=== PATIENT | female | born 1950 | race African-American/Black ===

== ENCOUNTER 2024-10-04 10:23 | Outpatient (AMB) | payer MEDICARE, SELFPAY ==
--- NOTE | 2024-10-04 11:20 | ORTHONT_ITS ---
Vital signs 10/04/24 11:21 Height 1.63 m Height Method Stated Weight 108.862 kg Weight Measurement Method Standing Scale BMI 40.9 BP 134/82 H Blood Pressure Source Automatic Cuff Blood Pressure Location Right Upper Arm Position Sitting Respiration 18 Pulse 85 Pulse Source Monitor Temp 97.8 F Temp Source Temporal Artery Scan Pulse Oximetry (%) 99 Oxygen Delivery Method Room Air Med/Allergies Allergies & Medications Allergies No Known Allergies Allergy (Verified 10/04/24 11:25) Medication Reconciliation meloxicam 7.5 mg tablet 7.5 mg PO QDAY #45 tabs 04/30/24 [Rx Confirmed 10/04/24] ibuprofen 800 mg tablet 800 mg PO BID 09/23/24 [History Confirmed 10/04/24] Subjective Visit Visit for: follow up visit Immunization / Flu Flu Vaccine in the Last 12 Months: No Flu Vaccine Exclusion Criteria: No Exclusion Criteria History of Present Illness Chief complaint: FOLLOWING BILATERAL KNEE INJECTION Patient is a pleasant 74-year-old female with bilateral knee pain worse on the right. This has been ongoing for 2 years. She tries ibuprofen. The pain is affecting her quality life and happiness. The knee injection has provided some relief bilaterally. Personal History Red flag PMH: smoker (NON SMOKER ) Pain Pain level (0-10): 4 Pain duration: ALL DAY Pain location: inside (medial), outside (lateral), anterior and posterior Pain quality: sharp, dull and aching Pain timing: increases with activity Associated signs & symptoms: weakness and stiffness Ambulatory data Ambulatory device: cane Treatments Improvement with previous injections: No Improvement with PT: No Improvement with NSAIDS: n/a Review of Systems Review of Systems: All systems negative unless otherwise noted in HPI. Exam Exam Patient is in no acute distress and is cooperative with the examination today. Breathing is nonlabored. In no respiratory distress. Bilateral extremities were evaluated and demonstrates sensation intact to light touch. Palpable pedal pulses are present. No significant edema is present. Bilateral hips were examined. The patient has no pain with log roll of the hips. Internal rotation to 30 degrees and external rotation to 30 degrees is painless. Negative FADIR. The left knee was examined. The left knee is in [varus] alignment. Range of motion from [0-115] degrees. Knee is stable to varus and valgus as well as AP translation with <5mm. Patient has a [negative] McMurrays. There is [no] pain with patellofemoral compression and [no] crepitus noted. The knee is [tender] to palpation [medially]. The right knee was also examined. The right knee is in [varus] alignment. Range of motion from [0-120] degrees. Knee is stable to varus and valgus as well as AP translation with <5mm. Patient has a [negative] McMurrays. There is [no] pain with patellofemoral compression and [no] crepitus noted. The knee is [tender] to palpation [medially]. Patient has weightbearing x-rays that demonstrate complete obliteration of the medial joint space. The patient has varus deformity. Assessment and Plan Problem List (1) Bilateral primary osteoarthritis of knee: Status: Acute Plan: Patient is a 74-year-old female with bilateral knee arthritis. We will get weightbearing films. She does have severe arthritis bilaterally. She is still doing well from her injection. She has lost over 10 pounds since we last saw her. She would like a hyaluronic acid injection on the left and wants to talk about surgery on the right. We discussed total knee replacement in great detail. She is significant arthritis on the right and the left knee arthritis is more mild. We discussed total knee replacement is reasonable option The nature and purpose of the total knee replacement, alternative method(s) of treatment, the material risks involved, and the possibility of complications were fully explained to the patient. The patient does NOT have any of the following contraindications to TKA: - Active infection of the knee joint, OR - Active systemic bacteremia, OR - Active skin infection or open wound at surgical site, OR - Neuropathic arthritis, OR - Severe, rapidly progressive neurological disease, OR - Severe medical condition that makes risks of surgery outweigh the potential benefit The patient was told the most common risks and complications associated with a total knee replacement include, but are not limited to: blood clots in the leg, fatal pulmonary embolism, dislocation of the prosthesis, intraoperative and postoperative fractures of the femur or tibia, infection, failure of the prosthesis or grafting materials, complications from anesthesia, reactions to blood transfusions, postoperative leg length inequality, instability of the knee replacement, nerve damage or injury, vascular injury, delayed wound healing, infection, other injury or even . In addition, there are risks associated with anesthesia given during this operation. Also, the patient was told that after undergoing a total knee replacement there may still be persistent pain or disability. The patient was informed that the success of this operation in part depends upon the mechanical devices which are going to be implanted and that these devices can fail or malfunction, and may need to be repaired or replaced and there are no guarantees as to the longevity of this device or its parts and that it or its parts could fail prematurely. The patient was also notified that during the course of surgery, there may be a need to use bone graft from donors, and that any bone graft used will be carefully screened for communicable diseases, including AIDS, hepatitis, Flynn-Creutzfeldt, or other diseases, but despite the screening procedures, there is a small chance that they could contract one of these diseases. Finally, the patient was asked to follow completely and fully with all advice and recommended treatments, and that recovery and ultimate outcome are affected by their compliance with recommended treatment. We discussed the risks, benefits and treatment alternatives, and the patient is interested in proceeding with surgery. We will try to set this up as expeditiously as possible. (2) Bilateral knee pain: Status: Acute Advanced Care Planning Discussion Advance care planning discussed with:: patient Office Procedures GNS Level of Care Nursing/Assessment Patient Status: Established Patient Nursing Assessment/Reassesment: Medication Reconciliation, Update PMH in EMR and Vital Signs Coordination of Care: Complex Care and Chronic Disease 1-5, Education Complex Pt/Fam, Consent,records obtained, informed consent, Results/Orders obtained and Staff clarify orders Established Patient Charge Established Patient Point Assignment: 95 Established Patient Point Charge: EP Level 3 (80-115) Surgical Proc/IM SQ injection Major Surgical Procedure: Yes (KNEE INJECTION) Medication Given Medication Given Medication Given: Yes Documented Dose Given: 6 Route: Infiitration Office Meds Hyalgan 10 mg/mL intra-articular syringe Performing Provider: Sabino Kirk MD Performing Location: [facility] Administered by: Sabino Kirk MD on 10/04/24 15:49 Dose Route Admin Location Dispensed Lot Number Expiration Date [employer] 20 mg intra-articular 2 mL [id number] Past Medical History Past Medical History Have you ever been diagnosed with any of the following: Neurological Problems Seizures: No Cardiology Problems Congestive Heart Failure: No Respiratory Problems Chronic Obstructive Pulmonary Disease (COPD): No Bronchitis: Yes Smoking: No Smoking Exposure: No Genital/Urinary Problems Renal Disease: No Musculoskeletal Problems Arthritis: Yes Head,Eye,Nose,Throat Problems Cataracts: Yes (BILATERAL) Endocrine Problems Diabetes Mellitus Type 1: No Diabetes Mellitus Type 2: No Blood Problems Anemia: Yes Other Problems Blood Transfusions: Yes Blood Transfusion Reaction: No Anesthesia Reactions: No Cancer: No
[2024-10-04 11:21] VITALS: BP 134/82; PULSE 85; RESP 18; TEMP 36.6; O2SAT 99; BMI 40.9
== END 2024-10-04 11:42 | disposition home or self-care (01) ==
LOC: HODSRG 10:23
PROVIDERS: Supervising Provider Orthopaedic Surgery Adult Reconstructive Orthopaedic Surgery; Visit Provider Orthopaedic Surgery Adult Reconstructive Orthopaedic Surgery
DX: M17.0 Bilateral primary osteoarthritis of knee (principal); M25.561 Pain in right knee; M25.562 Pain in left knee
CPT/HCPCS: 99213; G0463; J7325

== ENCOUNTER 2024-11-05 15:11 | Outpatient (AMB) | payer MEDICARE, SELFPAY ==
[2024-11-05 15:21] VITALS: BP 157/81; PULSE 77; RESP 18; TEMP 36.9; O2SAT 95; BMI 41.0
--- NOTE | 2024-11-05 15:21 | RHCORTHONT_ITS ---
Vital signs 11/05/24 15:21 Height 1.63 m Height Method Stated Weight 109.032 kg Weight Measurement Method Standing Scale BMI 41.0 BP 157/81 H Blood Pressure Source Automatic Cuff Blood Pressure Location Left Upper Arm Position Sitting Respiration 18 Pulse 77 Pulse Source Monitor Temp 98.4 F Temp Source Temporal Artery Scan Pulse Oximetry (%) 95 Oxygen Delivery Method Room Air Med/Allergies Allergies & Medications Allergies No Known Allergies Allergy (Verified 11/05/24 15:22) Medication Reconciliation meloxicam 7.5 mg tablet 7.5 mg PO QDAY #45 tabs 04/30/24 [Rx Confirmed 11/05/24] ibuprofen 800 mg tablet 800 mg PO BID #50 tabs 10/10/24 [Rx Confirmed 11/05/24] Exam Exam Patient is in no acute distress and is cooperative with the examination today. Breathing is nonlabored. In no respiratory distress. Bilateral extremities were evaluated and demonstrates sensation intact to light touch. Palpable pedal pulses are present. No significant edema is present. Bilateral hips were examined. The patient has no pain with log roll of the hips. Internal rotation to 30 degrees and external rotation to 30 degrees is painless. Negative FADIR. The left knee was examined. The left knee is in [varus] alignment. Range of motion from [0-115] degrees. Knee is stable to varus and valgus as well as AP translation with <5mm. Patient has a [negative] McMurrays. There is [no] pain with patellofemoral compression and [no] crepitus noted. The knee is [tender] to palpation [medially]. The right knee was also examined. The right knee is in [varus] alignment. Range of motion from [0-120] degrees. Knee is stable to varus and valgus as well as AP translation with <5mm. Patient has a [negative] McMurrays. There is [no] pain with patellofemoral compression and [no] crepitus noted. The knee is [tender] to palpation [medially]. Patient has weightbearing x-rays that demonstrate complete obliteration of the medial joint space. The patient has varus deformity. Assessment and Plan Problem List (1) Bilateral primary osteoarthritis of knee: Status: Acute Plan: Patient is a 74-year-old female with bilateral knee arthritis. We will get weightbearing films. She does have severe arthritis bilaterally. She is still doing well from her injection. She has lost over 10 pounds since we last saw her. She would like a hyaluronic acid injection on the left and wants to talk about surgery on the right. We discussed total knee replacement in great detail. We will plan for continued injections at this time as she is waiting for cardiac clearance Recommend knee cortisone injections as patient would like to proceed with conservative treatment at this time. The risks and benefits of the procedure were reviewed with the patient and patient gave verbal consent to continue with the procedure. Procedure: performed by Dr. Kirk Using sterile technique the Bilateral knees were thoroughly prepped with alcohol, and approximately 1 cc of Kenalog 40 mg/mL and 4 cc of 1% lidocaine was injected into each knee without resistance into the medial tibial femoral joint space. The patient tolerated the procedure.. (2) Bilateral knee pain: Status: Acute Advanced Care Planning Discussion Advance care planning discussed with:: patient Office Procedures GNS Level of Care Nursing/Assessment Patient Status: Established Patient Nursing Assessment/Reassesment: Medication Reconciliation, Update PMH in EMR and Vital Signs Coordination of Care: Complex Care and Chronic Disease 1-5, Education Complex Pt/Fam, Consent,records obtained, informed consent, Results/Orders obtained and Staff clarify orders Established Patient Charge Established Patient Point Assignment: 95 Established Patient Point Charge: EP Level 3 (80-115) Surgical Proc/IM SQ injection Major Surgical Procedure: Yes (BILATERAL KNEE INJECTION) Medication Given Medication Given Medication Given: Yes Documented Dose Given: 8 Route: Infiitration Medication Given Medication Given Medication Given: Yes Documented Dose Given: 2 Route: Infiitration Office Meds Xylocaine 10 mg/mL (1 %) injection solution Performing Provider: Sabino Kirk MD Performing Location: [facility] Administered by: Sabino Kirk MD on 11/05/24 15:46 Dose Route Admin Location Dispensed Lot Number Expiration Date [facility] Editor Book 40 mL Infiltration 40 mL [id number] 07/19/27 16344-115-70 FRESENI[employer] KA triamcinolone acetonide 40 mg/mL suspension for injection Performing Provider: Sabino Kirk MD Performing Location: [facility] Administered by: Sabino Kirk MD on 11/05/24 15:46 Dose Route Admin Location Dispensed Lot Number Expiration Date [facility] Editor Book 80 mg Infiltration 2 mL [id number] 04/18/26 5834-0584-13 TEVA PARENTERAL MA Intake Visit Data Collection New Patient or Established: Established Patient (seen at [facility] within 3 years) Seen by Clinical Staff ONLY (RN/MA): No Coatings Inspector Required: No PCP or OBGYN visit in last 3 months: Yes Hx Now: No Do You Feel Safe at Home: Yes Authorities Contacted: N/A Questionairres Past Medical History Past Medical History Have you ever been diagnosed with any of the following: Neurological Problems Seizures: No Cardiology Problems Congestive Heart Failure: No Respiratory Problems Chronic Obstructive Pulmonary Disease (COPD): No Bronchitis: Yes Smoking: No Smoking Exposure: No Genital/Urinary Problems Renal Disease: No Musculoskeletal Problems Arthritis: Yes Head,Eye,Nose,Throat Problems Cataracts: Yes (BILATERAL) Endocrine Problems Diabetes Mellitus Type 1: No Diabetes Mellitus Type 2: No Blood Problems Anemia: Yes Other Problems Blood Transfusions: Yes Blood Transfusion Reaction: No Anesthesia Reactions: No Cancer: No Subjective Visit Visit for: follow up visit Immunization / Flu Flu Vaccine in the Last 12 Months: No Flu Vaccine Exclusion Criteria: No Exclusion Criteria History of Present Illness Chief complaint: Bilateral knee pain Patient is a 74-year-old female with bilateral knee pain who is failed conservative treatment. We discussed nonoperative and operative options. At this point in time she is still waiting for her cardiac clearance. We will thus do a cortisone injection of both knees today Pain Pain level (0-10): 6 Pain duration: constant Pain location: inside (medial) Pain quality: aching Pain timing: increases with activity Associated signs & symptoms: none Ambulatory data Ambulatory device: walker Treatments Improvement with previous injections: No Improvement with PT: No Improvement with NSAIDS: no Review of Systems Review of Systems: All systems negative unless otherwise noted in HPI.
== END 2024-11-05 15:49 | disposition home or self-care (01) ==
LOC: HODSRG 15:11
PROVIDERS: PCP Family Medicine; Referring Provider Family Medicine; Supervising Provider Orthopaedic Surgery Adult Reconstructive Orthopaedic Surgery; Visit Provider Orthopaedic Surgery Adult Reconstructive Orthopaedic Surgery
DX: M17.0 Bilateral primary osteoarthritis of knee (principal); M25.562 Pain in left knee; M25.561 Pain in right knee
CPT/HCPCS: 20610; 99213; J3301; J3490; G0463

== ENCOUNTER 2025-01-28 14:00 | Outpatient (AMB) | payer MEDICARE, SELFPAY ==
--- NOTE | 2025-01-28 15:18 | ORTHONT_ITS ---
Med/Allergies Allergies & Medications Allergies No Known Allergies Allergy (Verified 11/05/24 15:22) Exam Exam Patient is in no acute distress and is cooperative with the examination today. Breathing is nonlabored. In no respiratory distress. Bilateral extremities were evaluated and demonstrates sensation intact to light touch. Palpable pedal pulses are present. No significant edema is present. Bilateral hips were examined. The patient has no pain with log roll of the hips. Internal rotation to 30 degrees and external rotation to 30 degrees is painless. Negative FADIR. The left knee was examined. The left knee is in [varus] alignment. Range of motion from [0-115] degrees. Knee is stable to varus and valgus as well as AP translation with <5mm. Patient has a [negative] McMurrays. There is [no] pain with patellofemoral compression and [no] crepitus noted. The knee is [tender] to palpation [medially]. The right knee was also examined. The right knee is in [varus] alignment. Range of motion from [0-120] degrees. Knee is stable to varus and valgus as well as AP translation with <5mm. Patient has a [negative] McMurrays. There is [no] pain with patellofemoral compression and [no] crepitus noted. The knee is [tender] to palpation [medially]. Patient has weightbearing x-rays that demonstrate complete obliteration of the medial joint space. The patient has varus deformity. Assessment and Plan Problem List (1) Bilateral primary osteoarthritis of knee: Status: Acute Plan: Patient is a 74-year-old female with bilateral knee arthritis. W she has severe arthritis on the right knee and would like to get this replaced. She would also like to get a left knee cortisone injection today Recommend knee cortisone injection as patient would like to proceed with conservative treatment at this time. The risks and benefits of the procedure were reviewed with the patient and patient gave verbal consent to continue with the procedure. Procedure: performed by Dr. Kirk Using sterile technique the left knee was thoroughly prepped with alcohol, and approximately 1 cc of Kenalog 40 mg/mL and 4 cc of 1% lidocaine was injected without resistance into the medial tibial femoral joint space. The patient tolerated the procedure. The nature and purpose of the right total knee replacement, alternative method(s) of treatment, the material risks involved, and the possibility of complications were fully explained to the patient. The patient does NOT have any of the following contraindications to TKA: - Active infection of the knee joint, OR - Active systemic bacteremia, OR - Active skin infection or open wound at surgical site, OR - Neuropathic arthritis, OR - Severe, rapidly progressive neurological disease, OR - Severe medical condition that makes risks of surgery outweigh the potential benefit The patient was told the most common risks and complications associated with a total knee replacement include, but are not limited to: blood clots in the leg, fatal pulmonary embolism, dislocation of the prosthesis, intraoperative and postoperative fractures of the femur or tibia, infection, failure of the prosthesis or grafting materials, complications from anesthesia, reactions to blood transfusions, postoperative leg length inequality, instability of the knee replacement, nerve damage or injury, vascular injury, delayed wound healing, infection, other injury or even . In addition, there are risks associated with anesthesia given during this operation. Also, the patient was told that after undergoing a total knee replacement there may still be persistent pain or disability. The patient was informed that the success of this operation in part depends upon the mechanical devices which are going to be implanted and that these devices can fail or malfunction, and may need to be repaired or replaced and there are no guarantees as to the longevity of this device or its parts and that it or its parts could fail prematurely. The patient was also notified that during the course of surgery, there may be a need to use bone graft from donors, and that any bone graft used will be carefully screened for communicable diseases, including AIDS, hepatitis, Flynn-Creutzfeldt, or other diseases, but despite the screening procedures, there is a small chance that they could contract one of these diseases. Finally, the patient was asked to follow completely and fully with all advice and recommended treatments, and that recovery and ultimate outcome are affected by their compliance with recommended treatment. We discussed the risks, benefits and treatment alternatives, and the patient is interested in proceeding with surgery. We will try to set this up as expeditiously as possible. (2) Bilateral knee pain: Status: Acute Advanced Care Planning Discussion Advance care planning discussed with:: patient MA Intake Visit Data Collection New Patient or Established: Established Patient (seen at [facility] within 3 years) Seen by Clinical Staff ONLY (RN/MA): No Aegis Console Operator Track Required: No PCP or OBGYN visit in last 3 months: Yes Hx Now: No Do You Feel Safe at Home: Yes Authorities Contacted: N/A Questionairres Past Medical History Past Medical History Have you ever been diagnosed with any of the following: Neurological Problems Seizures: No Cardiology Problems Congestive Heart Failure: No Respiratory Problems Chronic Obstructive Pulmonary Disease (COPD): No Bronchitis: Yes Smoking: No Smoking Exposure: No Genital/Urinary Problems Renal Disease: No Musculoskeletal Problems Arthritis: Yes Head,Eye,Nose,Throat Problems Cataracts: Yes (BILATERAL) Endocrine Problems Diabetes Mellitus Type 1: No Diabetes Mellitus Type 2: No Blood Problems Anemia: Yes Other Problems Blood Transfusions: Yes Blood Transfusion Reaction: No Anesthesia Reactions: No Cancer: No Subjective Visit Visit for: follow up visit Immunization / Flu Flu Vaccine in the Last 12 Months: No Flu Vaccine Exclusion Criteria: No Exclusion Criteria History of Present Illness Chief complaint: Bilateral knee pain Patient is a 74-year-old female with bilateral knee pain who is failed conservative treatment. We discussed nonoperative and operative options. She has received her cardiac clearance and wants to get surgery as soon as possible. We will plan to do it on the right as the left knee does not bother her that much. She would like a cortisone injection on the left today Pain Pain level (0-10): 6 Pain duration: constant Pain location: inside (medial) Pain quality: aching Pain timing: increases with activity Associated signs & symptoms: none Ambulatory data Ambulatory device: walker Treatments Improvement with previous injections: No Improvement with PT: No Improvement with NSAIDS: no Review of Systems Review of Systems: All systems negative unless otherwise noted in HPI.
[2025-01-28 15:24] VITALS: BP 158/87; PULSE 79; RESP 18; TEMP 36.7; O2SAT 98; BMI 41.1
== END 2025-01-28 15:55 | disposition home or self-care (01) ==
PROVIDERS: PCP Family Medicine; Referring Provider Family Medicine; Supervising Provider Orthopaedic Surgery Adult Reconstructive Orthopaedic Surgery; Visit Provider Orthopaedic Surgery Adult Reconstructive Orthopaedic Surgery
DX: M17.0 Bilateral primary osteoarthritis of knee (principal)
CPT/HCPCS: 20610; 99213; J3301; J3490; G0463

== ENCOUNTER → 2025-02-04 | Outpatient (CLI) | payer MEDICARE, SELFPAY ==
--- NOTE | 2025-02-04 | XR_ITS ---
Examination: CT right lower extremity, without contrast. 2-D sagittal reconstructions. 2-D coronal reconstructions. 3-D reconstructions. Date and time of exam:February 04, 2025 1230 hours INDICATIONS: Right knee pain unilateral osteoarthritis 5 years CTDI: vol (mGy):15.9 DLP: (mGycm):1169 Technique: Multiple 1.25 mm axial sections of the right lower extremity without intravenous contrast have been obtained. 2-D sagittal and coronal reconstructions have been obtained. 3-D reconstructions have been obtained. Low dose protocols were performed. One or more of the following dose reduction techniques were used; automated exposure control, adjustment of the mA and/or KV according to patient size, use of iterative reconstruction technique. Findings: Moderate osteopenia Moderate narrowing right hip joint No right hip fracture or dislocation Severe narrowing medial joint space Severe narrowing lateral patellofemoral joint Significant osteoarthritis lateral joint space No fracture IMPRESSION: Severe narrowing medial joint space right knee Severe narrowing lateral patellofemoral joint right knee
== END | disposition home or self-care (01) ==
LOC: CCTX 11:31
PROVIDERS: PCP Family Medicine; Referring Provider Orthopaedic Surgery Adult Reconstructive Orthopaedic Surgery; Visit Provider Orthopaedic Surgery Adult Reconstructive Orthopaedic Surgery
DX: M25.861 Other specified joint disorders, right knee (principal)
CPT/HCPCS: 73700

== ENCOUNTER 2025-02-12 07:00 | Day surgery (SDC) | payer MEDICARE, SELFPAY ==
[2025-02-04 14:07] VITALS: BMI 41.0
[2025-02-04 15:31] LABS: Basophils # (Auto) 0.1 Thou/mm3 (0.0-0.2); Basophils % (Auto) 1 % (0-2.5); Eosinophils # (Auto) 0.2 Thou/mm3 (0.0-0.5); Eosinophils % (Auto) 2 % (0-10); Hematocrit 31.1 % (36.0-46.0); Hemoglobin 9.4 g/dL (12.0-16.0); Immature Granulocytes % (Auto) 0 % (0-0); Immature Granulocytes Auto 0.01 Thou/mm3 (0.00-0.00); Lymphocytes # (Auto) 1.9 Thou/mm3 (1.0-4.8); Lymphocytes % (Auto) 27 % (10-50); Mean Corpuscular HGB Conc 30.2 g/dl (31.0-37.0); Mean Corpuscular Hemoglobin 24.9 pg (25.0-35.0); Mean Corpuscular Volume 83 fL (80-100); Monocytes # (Auto) 0.7 Thou/mm3 (0.0-0.8); Monocytes % (Auto) 10 % (0-12); Neutrophils # (Auto) 4.3 Thou/mm3 (1.8-7.7); Neutrophils % (Auto) 60 % (37-80); Nucleated Red Blood Cell % 0 /100 WBC (0); Platelet Count 345 Thou/mm3 (140-440); RDW Standard Deviation 56.8 fL (36.4-46.3); Red Blood Count 3.77 Miln/mm3 (4.00-5.20); White Blood Count 7.1 Thou/mm3 (3.6-11.0)
[2025-02-04 15:46] LABS: Alanine Aminotransferase 11 U/L (10-49); Albumin, Serum 4.1 gm/dL (3.4-4.8); Albumin/Globulin Ratio 1.6 (1.2-2.2); Alkaline Phosphatase 112 U/L (46-116); Anion Gap 7 (7-16); Aspartate Amino Transferase < 10 U/L (0-34); BUN/Creatinine Ratio 19 Ratio (12-20); Bilirubin,Total 0.5 mg/dL (0.3-1.2); Blood Urea Nitrogen 17 mg/dL (9-23); Calcium 9.8 mg/dL (8.3-10.6); Calcium (Corrected) 9.8 mg/dL (8.5-10.1); Carbon Dioxide 27.7 mMol/L (20.0-31.0); Chloride 106 mMol/L (98-107); Creatinine (Component) 0.9 mg/dL (0.6-1.3); Globulin 2.5 gm/dL (2.3-3.5); Glucose 95 mg/dL (74-106); Osmolality,Calculated 282 (275-295); Sodium 141 mMol/L (136-145); Total Protein 6.6 gm/dL (5.7-8.2); eGFR > 60 See Note
[2025-02-04 15:51] LABS: Partial Thromboplastin Time 27.6 Seconds (22.0-36.0)
--- NOTE | 2025-02-11 14:36 | SUR.PREOP ---
Pt notified to come in at 0700 for surgery tomorrow.
[2025-02-12] VITALS (21 sets, daily range): BP systolic 130–169; BP diastolic 71–99; PULSE 48–92; RESP 10–99; TEMP 36.3–37.4; O2SAT 98–100; BMI 46.5; BMI 50.1
--- NOTE | 2025-02-12 07:35 | CHAP ---
Visited briefly with patient giving words of encouragement and prayer.
[2025-02-12] MEDS: RINGERS LACTATED 1000 ML 1,000 ML 20 ML IV (07:53)
[2025-02-12] MEDS: MELOXICAM 7.5 MG TABLET PO (07:53)
[2025-02-12] MEDS: ACETAMINOPHEN 325 MG TABLET 650 MG PO (07:53)
[2025-02-12] MEDS: PREGABALIN 75 MG CAPSULE PO (07:53)
--- NOTE | 2025-02-12 12:42 | PD.SUROPNT ---
Date of Procedure 02/12/25 Pre Op Diagnosis right knee osteoarthritis Post Op Diagnosis right knee osteoarthritis Procedure right total knee replacement Findings full thickness cartilage loss and osteophytes Procedure Description Indication: The patient is a 75 year old who has a long history of right knee pain. X-rays show degenerative arthritis involving the knee. Over the past several years the patient has had increasing pain, progressive limitation in function. He has failed conservative measures including activity modification, physical therapy, injections, anti-inflammatories, and assistive devices. After a lengthy discussion of the risks and benefits, the patient presents now for total knee replacement. The nature and purpose of the total knee replacement, alternative method(s) of treatment, the material risks involved, and the possibility of complications were fully explained to the patient. The patient was told the most common risks and complications associated with a total knee replacement include, but are not limited to blood clots in the leg, fatal pulmonary embolism, dislocation of the prosthesis, intraoperative and postoperative fractures of the femur or tibia, infection, failure of the prosthesis or grafting materials, complications from anesthesia, reactions to blood transfusions, postoperative leg length inequality, instability of the knee replacement, nerve damage or injury, vascular injury, delayed wound healing, infections, other injury or even . In addition, there are risks associated with anesthesia given during this operation, temporary or permanent numbness on the skin lateral to the incision can be a complication unique to total knee surgery, and kneeling can be painful after knee replacement surgery. Also, the patient was told that after undergoing a total knee replacement there may still be pain or disability. We discussed with the patient that we will be using a robot-assisted technology. We discussed that there is a possibility of converting to manual instrumentation. The patient was informed that the success of this operation in part depends upon the mechanical devices which are going to be implanted and that these devices can fail or malfunction, and may need to be repaired or replaced and there are no guarantees as to the longevity of this device or its part and that it or its parts could fail prematurely. Finally, the patient was asked to follow completely and fully with all advice and recommended treatments, and that recovery and ultimate outcome are affected by their compliance with recommended treatment. Surgical technique: Patient was marked and consented in the pre-operative area. The patient was brought to the operating room and placed on the operating table in a supine position. Prior to positioning, a timeout procedure was performed between the surgeon, the anesthesiologist, and the nursing staff where the patient and the operative side were identified and confirmed. After adequate general anesthetic was obtained, the right lower extremity was prepped and draped in the usual sterile fashion. A weight based dose of Cefazolin were administered within 1 hour prior to incision. The robot was preregistered and calirated before the incision. The extremity was exsanguinated with an esmarch badge and tourniquet inflated to 250mmHg. A midline incision was made. A median parapatellar arthrotomy was made. The patella was subluxed laterally. A medial release was performed to expose the medial tibia. His femoral and tibial pins were placed through an intra incisional manner for both cases. Every effort was made to ensure that the distalmost aspect of the pin was hung in the second cortex. The arrays were then tightened several times to ensure that it was fixed for the remainder of the case. Both femoral and tibial checkpoints were then placed. We then went through the registration process of the bone. We then assessed the knee deformity and attempted to correct it. We also used the robot to aid in judging laxity in both extension and flexion. Final based on laxity and alignment we changed the preoperative assessment to obtain proper proper implant positioning and to correct deformity. Attention was then placed to the tibia. We made a tibial cut using the robot ensuring that both the MCL and the patella tendon were protected with retractors. We then went to the femur and made the posterior cut followed by the anterior cut and the anterior chamfer. The bone was then removed and we made a distal femur cut and a posterior chamfer cut. We verified all cuts. A trial reduction was performed with a size 3 femoral component and a size 3 keeled tibial component. The patella tracked centrally, and no lateral retinacular release was necessary. The trial implants were removed. The arrays, pins, and checkpoints were all removed. We performed a verification that all pins were removed. The cut bone surfaces were lavaged. A size 3 right femoral component, a size 3 keeled tibial component were impacted into position. The knee was felt to be well balanced in the sagittal and coronal plane. The final 3x10 mm cruciate-substituting articular insert was impacted into the tibial tray. The knee was brought out to full extension, flexed up to 120 degrees. It was stable to varus and valgus stress and appropriately balanced in flexion and extension. The wounds were copiously irrigated following deflation of tourniquet. The medial retinaculum was reapproximated with #1 vicryl and quill. The subcutaneous tissues were closed with 0 and 2-0 interrupted Vicryl. The skin was closed with 3-0 Monofilament V loc suture. A sterile dressing was applied. The patient was transferred to a bed and brought to recovery in stable condition. The patient tolerated the procedure well. There were no intraoperative complications. Sponge and needle counts were correct times 2. As the attending surgeon, I attest I was present and performed the entire operation. Grafts/Implants Size 2 CR Femur Size 2 Tibia 10mm poly CS Anesthesia none and GETA Implants rolly Pathology / specimen None Pathology comment: none Estimated Blood Loss 150 Condition Stable Disposition same day Surgeon Sabino Kirk MD Surgical Staff Operation Date: 02/12/25 10:30 Case Staff Anesthesiologist: Rigo Prasad RNoccupational health nursing director: Madeline Saul
--- NOTE | 2025-02-12 12:45 | XR_ITS ---
Examination: Right knee 2 views Technique one AP lateral right knee 2 views Exam date and time: February 12, 2025 at 1346 hours INDICATIONS: Postop knee replacement FINDINGS: Total right hip arthroplasty. Satisfactory alignment Moderate osteopenia No fracture IMPRESSION: Total right knee arthroplasty with satisfactory alignment
--- NOTE | 2025-02-12 12:48 | ESOP_ITS ---
Date of Procedure 02/12/25 Pre Op Diagnosis right knee osteoarthritis Post Op Diagnosis right knee osteoarthritis Procedure right total knee replacement Findings full thickness cartilage loss and osteophytes Procedure Description Indication: The patient is a 75 year old who has a long history of right knee pain. X-rays show degenerative arthritis involving the knee. Over the past several years the patient has had increasing pain, progressive limitation in function. He has failed conservative measures including activity modification, physical therapy, injections, anti-inflammatories, and assistive devices. After a lengthy discussion of the risks and benefits, the patient presents now for total knee replacement. The nature and purpose of the total knee replacement, alternative method(s) of treatment, the material risks involved, and the possibility of complications were fully explained to the patient. The patient was told the most common risks and complications associated with a total knee replacement include, but are not limited to blood clots in the leg, fatal pulmonary embolism, dislocation of the prosthesis, intraoperative and postoperative fractures of the femur or tibia, infection, failure of the prosthesis or grafting materials, complications from anesthesia, reactions to blood transfusions, postoperative leg length inequality, instability of the knee replacement, nerve damage or injury, vascular injury, delayed wound healing, infections, other injury or even . In addition, there are risks associated with anesthesia given during this operation, temporary or permanent numbness on the skin lateral to the incision can be a complication unique to total knee surgery, and kneeling can be painful after knee replacement surgery. Also, the patient was told that after undergoing a total knee replacement there may still be pain or disability. We discussed with the patient that we will be using a robot-assisted technology. We discussed that there is a possibility of converting to manual instrumentation. The patient was informed that the success of this operation in part depends upon the mechanical devices which are going to be implanted and that these devices can fail or malfunction, and may need to be repaired or replaced and there are no guarantees as to the longevity of this device or its part and that it or its parts could fail prematurely. Finally, the patient was asked to follow completely and fully with all advice and recommended treatments, and that recovery and ultimate outcome are affected by their compliance with recommended treatment. Surgical technique: Patient was marked and consented in the pre-operative area. The patient was brought to the operating room and placed on the operating table in a supine position. Prior to positioning, a timeout procedure was performed between the surgeon, the anesthesiologist, and the nursing staff where the patient and the operative side were identified and confirmed. After adequate general anesthetic was obtained, the right lower extremity was prepped and draped in the usual sterile fashion. A weight based dose of Cefazolin were administered within 1 hour prior to incision. The robot was preregistered and calirated before the incision. The extremity was exsanguinated with an esmarch badge and tourniquet inflated to 250mmHg. A midline incision was made. A median parapatellar arthrotomy was made. The patella was subluxed laterally. A medial release was performed to expose the medial tibia. His femoral and tibial pins were placed through an intra incisional manner for both cases. Every effort was made to ensure that the distalmost aspect of the pin was hung in the second cortex. The arrays were then tightened several times to ensure that it was fixed for the remainder of the case. Both femoral and tibial checkpoints were then placed. We then went through the registration process of the bone. We then assessed the knee deformity and attempted to correct it. We also used the robot to aid in judging laxity in both extension and flexion. Final based on laxity and alignment we changed the preoperative assessment to obtain proper proper implant positioning and to correct deformity. Attention was then placed to the tibia. We made a tibial cut using the robot ensuring that both the MCL and the patella tendon were protected with retractors. We then went to the femur and made the posterior cut followed by the anterior cut and the anterior chamfer. The bone was then removed and we made a distal femur cut and a posterior chamfer cut. We verified all cuts. A trial reduction was performed with a size 3 femoral component and a size 3 keeled tibial component. The patella tracked centrally, and no lateral retinacular release was necessary. The trial implants were removed. The arrays, pins, and checkpoints were all removed. We performed a verification that all pins were removed. The cut bone surfaces were lavaged. A size 3 right femoral component, a size 3 keeled tibial component were impacted into position. The knee was felt to be well balanced in the sagittal and coronal plane. The final 3x10 mm cruciate- substituting articular insert was impacted into the tibial tray. The knee was brought out to full extension, flexed up to 120 degrees. It was stable to varus and valgus stress and appropriately balanced in flexion and extension. The wounds were copiously irrigated following deflation of tourniquet. The medial retinaculum was reapproximated with #1 vicryl and quill. The subcutaneous tissues were closed with 0 and 2-0 interrupted Vicryl. The skin was closed with 3-0 Monofilament V loc suture. A sterile dressing was applied. The patient was transferred to a bed and brought to recovery in stable condition. The patient tolerated the procedure well. There were no intraoperative complications. Sponge and needle counts were correct times 2. As the attending surgeon, Olivier alcazar I was present and performed the entire operation. Grafts/Implants Size 3 CR Femur Size 3 Tibia 10mm poly CS Anesthesia spinal Implants [employer] Pathology / specimen None Pathology comment: none Estimated Blood Loss 150 Condition Stable Disposition same day Surgeon Sabino Kirk MD Surgical Staff Operation Date: 02/12/25 10:30 Case Staff Anesthesiologist: Rigo Prasad RNcareer technical supervisor: Madeline Saul
--- NOTE | 2025-02-12 13:25 | SUR.PHASEI ---
1325 Patient arrived to recovery resting comfortably in [facility], on oxygen 8L via oxy mask with a nasal airway-removed upon arrival, patient drowsy, able to follow verbal commands and respond, breathing unlabored, vital signs stable, dressing intact to right knee; prineo, abd, webril, katharina wraps, no bleeding noted, bilateral dorsalis pedis pulses present when palpated, patient has good circulation to right lower extremity; skin color normal for patient and warm to touch, lung sounds clear upon auscultation, report received from Gabriel MARTINEZ and Dr. Prasad
--- NOTE | 2025-02-12 13:58 | SUR.PHASEI ---
1358 XRAY complete per MD order
--- NOTE | 2025-02-12 14:28 | SUR.PHASEII ---
patients family at bedside with patient
--- NOTE | 2025-02-12 14:56 | SUR.PHASEII ---
6047 Dr. Kirk notified via telephone due to patient sleeping and unable to stay awake to keep conversation, patient states, I didn't sleep well last night , and patients daughter requested their mother to stay overnight in the hospital as they also shared their mother hasn't slept well the last two nights, Dr. Kirk gave telephone order read-back for [facility] overnight stay, regular diet, Oxycodone 5mg oral for pain 4-6 pain scale, Oxycodone 10mg oral for 7-10 pain scale, Tylenol oral 1000mg every Q6HR first dose at 1800 today, Aspirin 81mg oral BID first dose at 2100 today, will place order in EMR
--- NOTE | 2025-02-12 15:15 | SUR.PHASEII ---
1515 Patient resting comfortably in [facility] and oxygen level decreasing 88%-90%, on oxygen therapy initiated oxy mask 4L, will monitor patient
--- NOTE | 2025-02-12 17:02 | SUR.PHASEII ---
1702 Report given to Anisa MARTINEZ, patient meets discharge criteria from recovery, drowsy however talking with staff and eating ice chips, on oxygen 3L via nasal cannula, breathing unlabored, vital signs stable, denies pain, dressing intact to right knee; no bleeding noted.
--- NOTE | 2025-02-12 17:05 | SUR.PHASEII ---
1705 Notified patients daughter's via telephone, updated on patient condition and patients room assignment, all questions answered.
--- NOTE | 2025-02-12 17:40 | PC.PT ---
Attempt to initiate PT evaluation at 1500. Patient is still lethargic. Family at bedside. Check patient again at 1730. Patient is still lethargic. Unable to see the patient today for PT evaluation. Dr. Kirk made aware.
--- NOTE | 2025-02-12 17:47 | SUR.PHASEII ---
1747 Patient transported via bed with trapeze to room 373 without incident, patient awake and talking with staff, on oxygen 3L via oxy mask, breathing unlabored, vital signs stable, denies pain, dressing intact; no bleeding noted, Purewick in place-50ml urine voided. Anisa MARTINEZ promptly arrived in patient room, patient has call light in reach and talking with Anisa MARTINEZ when this sheet writer left patients room.
[2025-02-12] MEDS: ACETAMINOPHEN 500 MG TABLET 1000 MG PO ×2 (18:38→23:24)
[2025-02-12] MEDS: ASPIRIN EC 81 MG TABEC PO (21:06)
[2025-02-12] MEDS: oxyCODONE HCL 5 MG IR TAB 10 MG PO (21:34)
[2025-02-13] VITALS: BP 117/67; PULSE 78; PULSE 87; RESP 18; TEMP 36.3; O2SAT 99
[2025-02-13 04:00] VITALS: BP 119/70; PULSE 61; RESP 18; TEMP 36.2; O2SAT 98
[2025-02-13] MEDS: oxyCODONE HCL 5 MG IR TAB 10 MG PO ×2 (04:12→10:25)
[2025-02-13 08:00] VITALS: BP 117/63; PULSE 65; RESP 18; TEMP 36.3; O2SAT 100
[2025-02-13 08:03] VITALS: PULSE 93; RESP 100; RESP 18
[2025-02-13] MEDS: ASPIRIN EC 81 MG TABEC PO (08:23)
--- NOTE | 2025-02-13 11:17 | PC.SS ---
Addendum entered by MATTHIAS Angel 02/13/25 11:26: DME formed sent to Dr. Kirk's office for signatures. Original Note: Patient will need commode for home use. Bedside Commode Patient is physically incapable of utilizing regular toilet facilities because his or her diagnosis confines the patient to a single room. Patient is confined to a single level, and there is no toilet on that level; patient cannot access the toilet facilities in a timely manner due to lack of ambulation.
[2025-02-13 12:00] VITALS: BP 121/64; PULSE 68; RESP 18; TEMP 36.3; O2SAT 98
--- NOTE | 2025-02-13 12:30 | PC.SS ---
SS follow up: plan is for patient to d/c home. Family at bed side to transport. DME referral sent via [employer]. Patient explained DME vendor to contact patient or family for delivery of DME.
[2025-02-13] MEDS: ACETAMINOPHEN 500 MG TABLET 1000 MG PO (12:56)
--- NOTE | 2025-02-13 13:10 | PD.ANESPROG ---
Documentation for date of: 02/13/25 POST ANESTHESIA NOTE: Patient had GETA and R adductor canal block for R TKA yesterday. I just saw her briefly in 373 around 12:30 and she was alert and seated up by bedside, RN and family in room, NAD, denied any problems from anesthesia and jokingly asked if she can get anesthesia again. Rigo Prasad MD Anesthesia Progress Note Progress Note Most recent Vital Signs: Last Vital Signs Temp 97.3 F 02/13/25 12:00 Pulse 68 02/13/25 12:00 Resp 18 02/13/25 12:00 BP 121/64 02/13/25 12:00 Pulse Ox 98 02/13/25 12:00 O2 Del Method Room Air 02/13/25 12:00 O2 Flow Rate 3 02/12/25 22:57
== END 2025-02-13 13:32 | disposition home or self-care (01) ==
LOC: S2EX 12:45 → S3SX 02-13 07:22
PROVIDERS: Anesthesiology; PCP Family Medicine; Referring Provider Orthopaedic Surgery Adult Reconstructive Orthopaedic Surgery; Visit Provider Orthopaedic Surgery Adult Reconstructive Orthopaedic Surgery
PROC: (CPT 27447; principal; 2025-02-12 10:30)
DX: M17.11 Unilateral primary osteoarthritis, right knee (principal); M25.761 Osteophyte, right knee
CPT/HCPCS: 27447; 20985; 36415; 73560; 80053; 85025; 85610; 85730; 87081; 97163; A4217; C1713; C1776; J0690; J1100; J2250; J2405; J2704; J2710; J2795; J3010; J3490; J7030; J7120; J7999; A4648; A4649; A9270; J1596; J1805

== ENCOUNTER 2025-02-27 11:09 | Outpatient (AMB) | payer MEDICARE, SELFPAY ==
[2025-02-27 11:31] VITALS: BP 130/79; PULSE 82; RESP 18; TEMP 36.8; O2SAT 97
--- NOTE | 2025-02-27 11:31 | PD.ORTHCLVIS ---
Vital signs 02/27/25 11:31 Weight 107.303 kg Weight Measurement Method Standing Scale BP 130/79 Blood Pressure Source Automatic Cuff Blood Pressure Location Right Upper Arm Position Sitting Respiration 18 Pulse 82 Pulse Source Monitor Temp 98.3 F Temp Source Temporal Artery Scan Pulse Oximetry (%) 97 Oxygen Delivery Method Room Air Med/Allergies Allergies & Medications Allergies No Known Allergies Allergy (Verified 02/27/25 11:33) Medication Reconciliation ibuprofen 800 mg tablet 800 mg PO BID #50 tabs 01/17/25 [Rx Confirmed 02/27/25] ferrous sulfate 325 mg (65 mg iron) tablet (FeroSul) 325 mg PO .3 week 02/04/25 [History Confirmed 02/27/25] acetaminophen 500 mg tablet (Acetaminophen Extra Strength) 1,000 mg (2 x 500 mg) PO Q6H PRN pain #90 tabs 02/12/25 [Rx Confirmed 02/27/25] aspirin 81 mg tablet,delayed release 81 mg PO BID #60 tabs 02/12/25 [Rx Confirmed 02/27/25] doxycycline hyclate 100 mg tablet 100 mg PO BID #14 tabs 02/12/25 [Rx Confirmed 02/27/25] famotidine 10 mg tablet mg 02/12/25 [History Confirmed 02/27/25] gabapentin 300 mg capsule 300 mg PO .qhs #30 caps 02/12/25 [Rx Confirmed 02/27/25] sennosides 8.6 mg-docusate sodium 50 mg tablet (Senna-S) 1 tab-cap PO QDAY #30 tabs 02/12/25 [Rx Confirmed 02/27/25] oxycodone 5 mg tablet 5 mg PO Q6H PRN pain #28 tabs 02/13/25 [Rx Confirmed 02/27/25] oxycodone 5 mg tablet 5 mg PO Q6H PRN pain #28 tabs 02/13/25 [Rx Confirmed 02/27/25] Exam Exam Patient is in no acute distress and is cooperative with the examination today. Breathing is nonlabored. In no respiratory distress. Bilateral extremities were evaluated and demonstrates sensation intact to light touch. Palpable pedal pulses are present. No significant edema is present. Bilateral hips were examined. The patient has no pain with log roll of the hips. Internal rotation to 30 degrees and external rotation to 30 degrees is painless. Negative FADIR. Right knee incisions clean dry intact. Range of motion 0 to 105 degrees Assessment and Plan Problem List (1) History of total right knee replacement: Status: Acute Plan: Patient is status post right total knee replacement. Her pain is well-controlled. Will see her in 4 weeks with new x-rays Advanced Care Planning Discussion Advance care planning discussed with:: patient Office Procedures GNS Level of Care Nursing/Assessment Patient Status: Established Patient Nursing Assessment/Reassesment: Medication Reconciliation, Update PMH in EMR and Vital Signs Coordination of Care: Complex Care and Chronic Disease 1-5, Consent,records obtained, informed consent, Education Simp Pt/Fam, Results/Orders obtained and Staff clarify orders Established Patient Charge Established Patient Point Assignment: 90 Established Patient Point Charge: EP Level 3 (80-115) MA Intake Visit Data Collection New Patient or Established: Established Patient (seen at [facility] within 3 years) Reason for Visit:: 2 WK POST OP RT TKA Seen by Clinical Staff ONLY (RN/MA): No Oncology Consultant Required: No PCP or OBGYN visit in last 3 months: Yes Hx Now: No Do You Feel Safe at Home: Yes Authorities Contacted: N/A Questionairres Past Medical History Past Medical History Have you ever been diagnosed with any of the following: Neurological Problems Seizures: No Cardiology Problems Hypercholesterolemia: Yes Congestive Heart Failure: No Respiratory Problems Chronic Obstructive Pulmonary Disease (COPD): No Bronchitis: Yes Smoking: No Smoking Cessation Counseling: No Smoking Exposure: No Tobacco Use: No Stomache/Intestinal Problems Hepatitis: No Obesity: Yes Genital/Urinary Problems Renal Disease: No Reproductive Problems Previous Pregnancies: Yes Musculoskeletal Problems Arthritis: Yes Head,Eye,Nose,Throat Problems Cataracts: Yes (BILATERAL) Endocrine Problems Diabetes Mellitus Type 1: No Diabetes Mellitus Type 2: No Blood Problems Anemia: Yes Other Problems Hospitalization: No Shingles: No Blood Transfusions: Yes Blood Transfusion Reaction: No Anesthesia Reactions: No Chicken Pox: Yes Measles: Yes Mumps: Yes Cancer: No Subjective Visit Visit for: follow up visit and post op #1 (2 WK POST OP RT TKA ) Immunization / Flu Flu Vaccine in the Last 12 Months: No Flu Vaccine Exclusion Criteria: Refused by Patient History of Present Illness Chief complaint: Total knee replacement Mario is 2 weeks status post total knee replacement. She is doing well. She is doing well with home physical therapy Pain Pain level (0-10): 6 Pain duration: 2 WEEKS Pain location: anterior Pain quality: sharp and aching Pain timing: increases with activity Associated signs & symptoms: numbness, stiffness and other (specify) (SWELLING RT FOOT ) Ambulatory data Ambulatory device: walker Walking distance (minutes): 5 Treatments Number of previous injections: 0 Number of Physical Therapy sessions: 0 Improvement with NSAIDS: n/a Review of Systems Review of Systems: All systems negative unless otherwise noted in HPI.
== END 2025-02-27 11:55 | disposition home or self-care (01) ==
LOC: HODSRG 11:09
PROVIDERS: PCP Family Medicine; Referring Provider Family Medicine; Supervising Provider Orthopaedic Surgery Adult Reconstructive Orthopaedic Surgery; Visit Provider Orthopaedic Surgery Adult Reconstructive Orthopaedic Surgery
DX: Z96.651 Presence of right artificial knee joint (principal); E78.00 Pure hypercholesterolemia, unspecified
CPT/HCPCS: 99213; G0463

== ENCOUNTER 2025-04-08 13:01 | Outpatient (AMB) | payer MEDICARE, SELFPAY ==
--- NOTE | 2025-04-08 13:16 | ORTHONT_ITS ---
Vital signs 04/08/25 13:17 Height 1.6 m Height Method Stated Weight 106.282 kg Weight Measurement Method Standing Scale BMI 41.5 BP 139/80 H Blood Pressure Source Automatic Cuff Blood Pressure Location Left Upper Arm Position Sitting Respiration 19 Pulse 81 Pulse Source Monitor Temp 97.9 F Temp Source Temporal Artery Scan Pulse Oximetry (%) 97 Oxygen Delivery Method Room Air Med/Allergies Allergies & Medications Allergies No Known Allergies Allergy (Verified 04/08/25 13:18) Medication Reconciliation ibuprofen 800 mg tablet 800 mg PO BID #50 tabs 01/17/25 [Rx Confirmed 04/08/25] ferrous sulfate 325 mg (65 mg iron) tablet (FeroSul) 325 mg PO .3 week 02/04/25 [History Confirmed 04/08/25] aspirin 81 mg tablet,delayed release 81 mg PO BID #60 tabs 02/12/25 [Rx Confirmed 04/08/25] doxycycline hyclate 100 mg tablet 100 mg PO BID #14 tabs 02/12/25 [Rx Confirmed 04/08/25] famotidine 10 mg tablet mg 02/12/25 [History Confirmed 04/08/25] sennosides 8.6 mg-docusate sodium 50 mg tablet (Senna-S) 1 tab-cap PO QDAY #30 tabs 02/12/25 [Rx Confirmed 04/08/25] oxycodone 5 mg tablet 5 mg PO Q6H PRN pain #28 tabs 02/13/25 [Rx Confirmed 04/08/25] oxycodone 5 mg tablet 5 mg PO Q6H PRN pain #28 tabs 02/13/25 [Rx Confirmed 04/08/25] acetaminophen 500 mg tablet (Acetaminophen Extra Strength) 1,000 mg (2 x 500 mg) PO Q6H PRN pain #90 tabs 03/04/25 [Rx Confirmed 04/08/25] cyclobenzaprine 5 mg tablet 5 mg PO TID PRN muscle spasm #60 tabs 03/13/25 [Rx Confirmed 04/08/25] gabapentin 300 mg capsule 300 mg PO .qhs #30 caps 04/08/25 [Rx] oxycodone 5 mg tablet 5 mg PO Q6H PRN pain #28 tabs 04/08/25 [Rx] Exam Exam Patient is in no acute distress and is cooperative with the examination today. Breathing is nonlabored. In no respiratory distress. Bilateral extremities were evaluated and demonstrates sensation intact to light touch. Palpable pedal pulses are present. No significant edema is present. Bilateral hips were examined. The patient has no pain with log roll of the hips. Internal rotation to 30 degrees and external rotation to 30 degrees is painless. Negative FADIR. Right knee incisions clean dry intact. Range of motion 0 to 105 degrees Assessment and Plan Problem List (1) History of total right knee replacement: Status: Acute Plan: Patient is status post right total knee replacement. Her pain is well- controlled. She did not get new x-rays we will get her a new x-ray today. Will also give her prescription for a cane. She would like to get a commode as well as she has difficulty getting up from hide. We discussed that this is possible. We will get new x-rays and possibly a cortisone injection of the contralateral knee at the next visit Advanced Care Planning Discussion Advance care planning discussed with:: patient Office Procedures GNS Level of Care Nursing/Assessment Patient Status: Established Patient Nursing Assessment/Reassesment: Medication Reconciliation, Update PMH in EMR and Vital Signs Coordination of Care: Complex Care and Chronic Disease 1-5, Education Complex Pt/Fam, Consent,records obtained, informed consent, Results/Orders obtained and Staff clarify orders Established Patient Charge Established Patient Point Assignment: 95 Established Patient Point Charge: EP Level 3 (80-115) MA Intake Visit Data Collection New Patient or Established: Established Patient (seen at [facility] within 3 years) Reason for Visit:: 6 WEEK FOLLOW UP TKA Seen by Clinical Staff ONLY (RN/MA): No PCP or OBGYN visit in last 3 months: Yes Hx Now: No Do You Feel Safe at Home: Yes Authorities Contacted: N/A Questionairres Past Medical History Past Medical History Have you ever been diagnosed with any of the following: Neurological Problems Seizures: No Cardiology Problems Hypercholesterolemia: Yes Congestive Heart Failure: No Respiratory Problems Chronic Obstructive Pulmonary Disease (COPD): No Bronchitis: Yes Smoking: No Smoking Cessation Counseling: No Smoking Exposure: No Tobacco Use: No Stomache/Intestinal Problems Hepatitis: No Obesity: Yes Genital/Urinary Problems Renal Disease: No Reproductive Problems Previous Pregnancies: Yes Musculoskeletal Problems Arthritis: Yes Head,Eye,Nose,Throat Problems Cataracts: Yes (BILATERAL) Endocrine Problems Diabetes Mellitus Type 1: No Diabetes Mellitus Type 2: No Blood Problems Anemia: Yes Other Problems Hospitalization: No Shingles: No Blood Transfusions: Yes Blood Transfusion Reaction: No Anesthesia Reactions: No Chicken Pox: Yes Measles: Yes Mumps: Yes Cancer: No Subjective Visit Visit for: follow up visit and knee Immunization / Flu Flu Vaccine in the Last 12 Months: No Flu Vaccine Exclusion Criteria: No Exclusion Criteria History of Present Illness Chief complaint: Total knee replacement Mario is 8 weeks status post total knee replacement. She is doing well. She is doing well with Outpatient physical therapy Pain Pain level (0-10): 4 Pain duration: ON AND OFF Pain location: inside (medial), outside (lateral) and anterior Pain quality: tingling Pain timing: night Associated signs & symptoms: numbness Ambulatory data Ambulatory device: walker Walking distance (minutes): 5 Treatments Number of previous injections: 0 Improvement with previous injections: No Number of Physical Therapy sessions: 0 Improvement with PT: No Improvement with NSAIDS: no Review of Systems Review of Systems: All systems negative unless otherwise noted in HPI.
[2025-04-08 13:17] VITALS: BP 139/80; PULSE 81; RESP 19; TEMP 36.6; O2SAT 97; BMI 41.5
--- NOTE | 2025-04-08 13:27 | XR_ITS ---
Examination: Bilateral knees 2 views Right lateral knee left lateral knee 2 views Right axial knee left axial knee 2 views TECHNIQUE: Bilateral AP knees standing single view, bilateral PA knees standing single view flexion Standing right lateral knee left lateral knee 2 views Right axial knee left axial knee 2 views total 6 views Date and time: April 08, 2025 1405 hours INDICATIONS: Right knee surgery 2 months ago left knee pain one month. FINDINGS: Prominent osteopenia Total right knee arthroplasty. Satisfactory alignment No right patellar dislocation Advanced narrowing [id number] medial joint space left knee Advanced osteoarthritis left patellofemoral joint No fracture IMPRESSION: Total right knee arthroplasty with satisfactory alignment Advanced narrowing [id number] medial joint space left knee Advanced osteoarthritis left patellofemoral joint
== END 2025-04-08 13:30 | disposition home or self-care (01) ==
PROVIDERS: PCP Family Medicine; Referring Provider Family Medicine; Supervising Provider Orthopaedic Surgery Adult Reconstructive Orthopaedic Surgery; Visit Provider Orthopaedic Surgery Adult Reconstructive Orthopaedic Surgery
DX: Z96.651 Presence of right artificial knee joint (principal); E78.00 Pure hypercholesterolemia, unspecified
CPT/HCPCS: 73564; 99213; G0463

== ENCOUNTER 2025-05-08 11:06 | Outpatient (AMB) | payer MEDICARE, SELFPAY ==
[2025-05-08 11:32] VITALS: BP 140/79; PULSE 78; RESP 18; O2SAT 100; BMI 40.9
--- NOTE | 2025-05-08 11:32 | PD.ORTHCLVIS ---
Vital signs 05/08/25 11:32 Height 1.6 m Height Method Stated Weight 104.865 kg Weight Measurement Method Standing Scale BMI 40.9 BP 140/79 H Blood Pressure Source Automatic Cuff Blood Pressure Location Right Upper Arm Position Sitting Respiration 18 Pulse 78 Pulse Source Monitor Pulse Oximetry (%) 100 Oxygen Delivery Method Room Air Med/Allergies Allergies & Medications Allergies No Known Allergies Allergy (Verified 05/08/25 11:33) Medication Reconciliation ibuprofen 800 mg tablet 800 mg PO BID #50 tabs 01/17/25 [Rx Confirmed 05/08/25] ferrous sulfate 325 mg (65 mg iron) tablet (FeroSul) 325 mg PO .3 week 02/04/25 [History Confirmed 05/08/25] aspirin 81 mg tablet,delayed release 81 mg PO BID #60 tabs 02/12/25 [Rx Confirmed 05/08/25] doxycycline hyclate 100 mg tablet 100 mg PO BID #14 tabs 02/12/25 [Rx Confirmed 05/08/25] famotidine 10 mg tablet mg 02/12/25 [History Confirmed 05/08/25] sennosides 8.6 mg-docusate sodium 50 mg tablet (Senna-S) 1 tab-cap PO QDAY #30 tabs 02/12/25 [Rx Confirmed 05/08/25] oxycodone 5 mg tablet 5 mg PO Q6H PRN pain #28 tabs 02/13/25 [Rx Confirmed 05/08/25] oxycodone 5 mg tablet 5 mg PO Q6H PRN pain #28 tabs 02/13/25 [Rx Confirmed 05/08/25] acetaminophen 500 mg tablet (Acetaminophen Extra Strength) 1,000 mg (2 x 500 mg) PO Q6H PRN pain #90 tabs 03/04/25 [Rx Confirmed 05/08/25] cyclobenzaprine 5 mg tablet 5 mg PO TID PRN muscle spasm #60 tabs 03/13/25 [Rx Confirmed 05/08/25] gabapentin 300 mg capsule 300 mg PO .qhs #30 caps 04/08/25 [Rx Confirmed 05/08/25] oxycodone 5 mg tablet 5 mg PO Q6H PRN pain #28 tabs 04/08/25 [Rx Confirmed 05/08/25] meloxicam 7.5 mg tablet 7.5 mg PO QDAY #45 tabs 05/08/25 [Rx] Exam Exam Patient is in no acute distress and is cooperative with the examination today. Breathing is nonlabored. In no respiratory distress. Bilateral extremities were evaluated and demonstrates sensation intact to light touch. Palpable pedal pulses are present. No significant edema is present. Bilateral hips were examined. The patient has no pain with log roll of the hips. Internal rotation to 30 degrees and external rotation to 30 degrees is painless. Negative FADIR. Right knee incisions clean dry intact. Range of motion 0 to 105 degrees Assessment and Plan Problem List (1) History of total right knee replacement: Status: Acute Plan: Patient is status post right total knee replacement. She is doing well with the right knee and would like a left knee injection today. She is continue to work with physical therapy Recommend knee cortisone injection as patient would like to proceed with conservative treatment at this time. The risks and benefits of the procedure were reviewed with the patient and patient gave verbal consent to continue with the procedure. Procedure: performed by Dr. Kirk Using sterile technique the left knee was thoroughly prepped with alcohol, and approximately 1 cc of Kenalog 40 mg/mL and 4 cc of 1% lidocaine was injected without resistance into the medial tibial femoral joint space. The patient tolerated the procedure. Advanced Care Planning Discussion Advance care planning discussed with:: patient Office Procedures GNS Level of Care Nursing/Assessment Patient Status: Established Patient Nursing Assessment/Reassesment: Medication Reconciliation, Update PMH in EMR and Vital Signs Coordination of Care: Complex Care and Chronic Disease 1-5, Education Complex Pt/Fam, Consent,records obtained, informed consent, Results/Orders obtained and Staff clarify orders Established Patient Charge Established Patient Point Assignment: 95 Established Patient Point Charge: EP Level 3 (80-115) Surgical Proc/IM SQ injection Major Surgical Procedure: Yes (KNEE INJECTION) Medication Given Medication Given Medication Given: Yes Documented Dose Given: 4 Route: Infiitration Medication Given Medication Given Medication Given: Yes Documented Dose Given: 1 Route: Infiitration Office Meds Xylocaine 10 mg/mL (1 %) injection solution Performing Provider: Sabino Kirk MD Performing Location: [facility] Administered by: Sabino Kirk MD on 05/08/25 15:47 Dose Route Admin Location Dispensed Lot Number Expiration Date [facility] [employer] 20 mL Infiltration 20 mL [id number] 03/19/28 02070-095-94 [facility] triamcinolone acetonide 40 mg/mL suspension for injection Performing Provider: Sabino Kirk MD Performing Location: [facility] Administered by: Sabino Kirk MD on 05/08/25 15:47 Dose Route Admin Location Dispensed Lot Number Expiration Date [facility] [employer] 40 mg intra-articular KNEE 1 mL [id number] 06/18/26 93834-991-00 KENDALL CALLAHAN MA Intake Visit Data Collection New Patient or Established: Established Patient (seen at [facility] within 3 years) Reason for Visit:: F/U KNEE PAIN Seen by Clinical Staff ONLY (RN/MA): No Verbal consent obtained for Telemed visit?: No Logging Contractor Required: No PCP or OBGYN visit in last 3 months: Yes Hx Now: No Do You Feel Safe at Home: Yes Authorities Contacted: N/A Questionairres Past Medical History Past Medical History Have you ever been diagnosed with any of the following: Neurological Problems Seizures: No Cardiology Problems Hypercholesterolemia: Yes Congestive Heart Failure: No Respiratory Problems Chronic Obstructive Pulmonary Disease (COPD): No Bronchitis: Yes Smoking: No Smoking Cessation Counseling: No Smoking Exposure: No Tobacco Use: No Stomache/Intestinal Problems Hepatitis: No Obesity: Yes Genital/Urinary Problems Renal Disease: No Reproductive Problems Previous Pregnancies: Yes Musculoskeletal Problems Arthritis: Yes Head,Eye,Nose,Throat Problems Cataracts: Yes (BILATERAL) Endocrine Problems Diabetes Mellitus Type 1: No Diabetes Mellitus Type 2: No Blood Problems Anemia: Yes Other Problems Hospitalization: No Shingles: No Blood Transfusions: Yes Blood Transfusion Reaction: No Anesthesia Reactions: No Chicken Pox: Yes Measles: Yes Mumps: Yes Cancer: No Subjective Visit Visit for: follow up visit and knee Immunization / Flu Flu Vaccine in the Last 12 Months: No Flu Vaccine Exclusion Criteria: No Exclusion Criteria History of Present Illness Chief complaint: F/U KNEE PAIN Date of 1st surgery (if applicable): 02/12/25 Patient is a 75-year-old female status post right total knee replacement. She is doing well. She is significant pain in the left knee. We have treated her conservatively in the past. She would like a left knee cortisone injection today Personal History Occupation: RETIRED Red flag PMH: BMI BMI Counceling provided: Yes Pain Pain level (0-10): 5 Pain duration: ALL DAY Pain location: anterior and posterior Pain quality: sharp, dull, aching and shocking Pain timing: night and increases with activity Associated signs & symptoms: stiffness Ambulatory data Ambulatory device: cane Treatments Improvement with previous injections: Yes Improvement with PT: No Improvement with NSAIDS: no Review of Systems Review of Systems: All systems negative unless otherwise noted in HPI.
== END 2025-05-08 11:51 | disposition home or self-care (01) ==
LOC: HODSRG 11:06
PROVIDERS: PCP Family Medicine; Referring Provider Family Medicine; Supervising Provider Orthopaedic Surgery Adult Reconstructive Orthopaedic Surgery; Visit Provider Orthopaedic Surgery Adult Reconstructive Orthopaedic Surgery
DX: M25.562 Pain in left knee (principal); Z96.651 Presence of right artificial knee joint; E78.00 Pure hypercholesterolemia, unspecified
CPT/HCPCS: 20610; 99213; J3301; J3490; G0463

== ENCOUNTER 2025-05-20 14:13 | Outpatient (AMB) | payer MEDICARE, SELFPAY ==
--- NOTE | 2025-05-20 14:34 | ORTHONT_ITS ---
Vital signs 05/20/25 14:37 Height 1.6 m Height Method Stated Weight 104.014 kg Weight Measurement Method Standing Scale BMI 40.6 BP 138/82 H Blood Pressure Source Automatic Cuff Blood Pressure Location Left Upper Arm Position Sitting Respiration 19 Pulse 72 Pulse Source Monitor Temp 97.7 F Temp Source Temporal Artery Scan Pulse Oximetry (%) 98 Oxygen Delivery Method Room Air Med/Allergies Allergies & Medications Allergies No Known Allergies Allergy (Verified 05/20/25 14:38) Medication Reconciliation ibuprofen 800 mg tablet 800 mg PO BID #50 tabs 01/17/25 [Rx Confirmed 05/20/25] ferrous sulfate 325 mg (65 mg iron) tablet (FeroSul) 325 mg PO .3 week 02/04/25 [History Confirmed 05/20/25] aspirin 81 mg tablet,delayed release 81 mg PO BID #60 tabs 02/12/25 [Rx Confirmed 05/20/25] doxycycline hyclate 100 mg tablet 100 mg PO BID #14 tabs 02/12/25 [Rx Confirmed 05/20/25] famotidine 10 mg tablet mg 02/12/25 [History Confirmed 05/20/25] sennosides 8.6 mg-docusate sodium 50 mg tablet (Senna-S) 1 tab-cap PO QDAY #30 tabs 02/12/25 [Rx Confirmed 05/20/25] oxycodone 5 mg tablet 5 mg PO Q6H PRN pain #28 tabs 02/13/25 [Rx Confirmed 05/20/25] oxycodone 5 mg tablet 5 mg PO Q6H PRN pain #28 tabs 02/13/25 [Rx Confirmed 05/20/25] acetaminophen 500 mg tablet (Acetaminophen Extra Strength) 1,000 mg (2 x 500 mg) PO Q6H PRN pain #90 tabs 03/04/25 [Rx Confirmed 05/20/25] gabapentin 300 mg capsule 300 mg PO .qhs #30 caps 04/08/25 [Rx Confirmed 05/20/25] oxycodone 5 mg tablet 5 mg PO Q6H PRN pain #28 tabs 04/08/25 [Rx Confirmed 05/20/25] meloxicam 7.5 mg tablet 7.5 mg PO QDAY #45 tabs 05/08/25 [Rx Confirmed 05/20/25] cyclobenzaprine 5 mg tablet 5 mg PO QHS PRN muscle spasm #60 tabs 05/20/25 [Rx] Exam Exam Patient is in no acute distress and is cooperative with the examination today. Breathing is nonlabored. In no respiratory distress. Bilateral extremities were evaluated and demonstrates sensation intact to light touch. Palpable pedal pulses are present. No significant edema is present. Bilateral hips were examined. The patient has no pain with log roll of the hips. Internal rotation to 30 degrees and external rotation to 30 degrees is painless. Negative FADIR. Right knee incisions clean dry intact. Range of motion 0 to 105 degrees Assessment and Plan Problem List (1) History of total right knee replacement: Status: Acute Plan: Patient is status post right total knee replacement. She is doing well with the right knee . Her last x-rays look good. She did fall recently and would like to get new x-rays of her right knee. Will see her in 3 months for routine follow- up Advanced Care Planning Discussion Advance care planning discussed with:: patient Office Procedures GNS Level of Care Nursing/Assessment Patient Status: Established Patient Nursing Assessment/Reassesment: Medication Reconciliation, Update PMH in EMR and Vital Signs Coordination of Care: Complex Care and Chronic Disease 1-5, Education Complex Pt/Fam, Consent,records obtained, informed consent, Results/Orders obtained and Staff clarify orders Established Patient Charge Established Patient Point Assignment: 95 Established Patient Point Charge: EP Level 3 (80-115) MA Intake Visit Data Collection New Patient or Established: Established Patient (seen at [facility] within 3 years) Reason for Visit:: R TKA KNEE PAIN Seen by Clinical Staff ONLY (RN/MA): No PCP or OBGYN visit in last 3 months: Yes Hx Now: No Do You Feel Safe at Home: Yes Authorities Contacted: N/A Questionairres Past Medical History Past Medical History Have you ever been diagnosed with any of the following: Neurological Problems Seizures: No Cardiology Problems Hypercholesterolemia: Yes Congestive Heart Failure: No Respiratory Problems Chronic Obstructive Pulmonary Disease (COPD): No Bronchitis: Yes Smoking: No Smoking Cessation Counseling: No Smoking Exposure: No Tobacco Use: No Stomache/Intestinal Problems Hepatitis: No Obesity: Yes Genital/Urinary Problems Renal Disease: No Reproductive Problems Previous Pregnancies: Yes Musculoskeletal Problems Arthritis: Yes Head,Eye,Nose,Throat Problems Cataracts: Yes (BILATERAL) Endocrine Problems Diabetes Mellitus Type 1: No Diabetes Mellitus Type 2: No Blood Problems Anemia: Yes Other Problems Hospitalization: No Shingles: No Blood Transfusions: Yes Blood Transfusion Reaction: No Anesthesia Reactions: No Chicken Pox: Yes Measles: Yes Mumps: Yes Cancer: No Subjective Visit Visit for: follow up visit and knee Immunization / Flu Flu Vaccine in the Last 12 Months: No Flu Vaccine Exclusion Criteria: No Exclusion Criteria History of Present Illness Chief complaint: F/U KNEE PAIN Date of 1st surgery (if applicable): 02/12/25 Patient is a 75-year-old female status post right total knee replacement. She is doing well. She is significant pain in the left knee. We have treated her conservatively in the past. S Personal History Occupation: RETIRED Red flag PMH: BMI BMI Counceling provided: Yes Pain Pain level (0-10): 8 Pain duration: CONSTANT Pain location: inside (medial), anterior and posterior Pain quality: sharp, dull, aching, shocking, electric and tingling Pain timing: night and increases with activity Associated signs & symptoms: stiffness Ambulatory data Ambulatory device: cane Treatments Improvement with previous injections: Yes Improvement with PT: No Improvement with NSAIDS: no Review of Systems Review of Systems: All systems negative unless otherwise noted in HPI.
[2025-05-20 14:37] VITALS: BP 138/82; PULSE 72; RESP 19; TEMP 36.5; O2SAT 98; BMI 40.6
--- NOTE | 2025-05-20 14:46 | XR_ITS ---
Examination: Bilateral AP knees single view PA lateral axial right knee 3 views TECHNIQUE: Bilateral AP knees standing single view Upright PA flexion right knee, standing lateral, axial right knee 3 views total 4 views Date and time: May 20, 2025 1522 hours FINDINGS: Moderate osteopenia Total right knee arthroplasty. Satisfactory alignment. No loosening of the prosthetic components. No patellar dislocation Advanced narrowing medial joint space left knee IMPRESSION: Total right knee arthroplasty with satisfactory alignment Advanced narrowing medial joint space left knee
== END 2025-05-20 14:51 | disposition home or self-care (01) ==
LOC: HODSRG 14:13
PROVIDERS: PCP Family Medicine; Referring Provider Family Medicine; Supervising Provider Orthopaedic Surgery Adult Reconstructive Orthopaedic Surgery; Visit Provider Orthopaedic Surgery Adult Reconstructive Orthopaedic Surgery
DX: Z96.651 Presence of right artificial knee joint (principal); M25.562 Pain in left knee; M25.861 Other specified joint disorders, right knee; E78.00 Pure hypercholesterolemia, unspecified
CPT/HCPCS: 73564; 99213; G0463

== ENCOUNTER 2025-07-08 13:10 | Outpatient (AMB) | payer MEDICARE, SELFPAY ==
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
[2025-07-08 13:34] VITALS: BP 138/80; PULSE 66; RESP 18; TEMP 36.6; O2SAT 96; BMI 39.3
== END 2025-07-08 14:05 | disposition home or self-care (01) ==
LOC: HODSRG 13:10
PROVIDERS: PCP Family Medicine; Referring Provider Family Medicine; Supervising Provider Orthopaedic Surgery Adult Reconstructive Orthopaedic Surgery; Visit Provider Orthopaedic Surgery Adult Reconstructive Orthopaedic Surgery
DX: Z96.651 Presence of right artificial knee joint (principal); M25.562 Pain in left knee; S89.91XA Unspecified injury of right lower leg, initial encounter; V49.9XXA Car occupant (driver) (passenger) injured in unspecified traffic accident, initial encounter; Y92.410 Unspecified street and highway as the place of occurrence of the external cause; E78.00 Pure hypercholesterolemia, unspecified; E66.9 Obesity, unspecified; Z68.39 Body mass index [BMI] 39.0-39.9, adult
CPT/HCPCS: 99213; G0463

== ENCOUNTER 2025-08-20 13:40 | Outpatient (AMB) | payer MEDICARE, SELFPAY ==
[2025-08-20 13:51] VITALS: BP 122/82; PULSE 84; RESP 18; TEMP 36.5; O2SAT 96; BMI 39.2
--- NOTE | 2025-08-20 13:51 | ORTHONT_ITS ---
Vital signs 08/20/25 13:51 Height 1.6 m Height Method Stated Weight 100.357 kg Weight Measurement Method Standing Scale BMI 39.2 BP 122/82 Blood Pressure Source Automatic Cuff Blood Pressure Location Right Upper Arm Position Sitting Respiration 18 Pulse 84 Pulse Source Monitor Temp 97.7 F Temp Source Temporal Artery Scan Pulse Oximetry (%) 96 Oxygen Delivery Method Room Air Med/Allergies Allergies & Medications Allergies No Known Allergies Allergy (Verified 08/20/25 13:52) Medication Reconciliation ibuprofen 800 mg tablet 800 mg PO BID #50 tabs 01/17/25 [Rx Confirmed 08/20/25] ferrous sulfate 325 mg (65 mg iron) tablet (FeroSul) 325 mg PO .3 week 02/04/25 [History Confirmed 08/20/25] aspirin 81 mg tablet,delayed release 81 mg PO BID #60 tabs 02/12/25 [Rx Confirmed 08/20/25] doxycycline hyclate 100 mg tablet 100 mg PO BID #14 tabs 02/12/25 [Rx Confirmed 08/20/25] famotidine 10 mg tablet mg 02/12/25 [History Confirmed 08/20/25] sennosides 8.6 mg-docusate sodium 50 mg tablet (Senna-S) 1 tab-cap PO QDAY #30 tabs 02/12/25 [Rx Confirmed 08/20/25] oxycodone 5 mg tablet 5 mg PO Q6H PRN pain #28 tabs 02/13/25 [Rx Confirmed 08/20/25] oxycodone 5 mg tablet 5 mg PO Q6H PRN pain #28 tabs 02/13/25 [Rx Confirmed 08/20/25] acetaminophen 500 mg tablet (Acetaminophen Extra Strength) 1,000 mg (2 x 500 mg) PO Q6H PRN pain #90 tabs 03/04/25 [Rx Confirmed 08/20/25] gabapentin 300 mg capsule 300 mg PO .qhs #30 caps 04/08/25 [Rx Confirmed 08/20/25] oxycodone 5 mg tablet 5 mg PO Q6H PRN pain #28 tabs 04/08/25 [Rx Confirmed 08/20/25] meloxicam 7.5 mg tablet 7.5 mg PO QDAY #45 tabs 05/08/25 [Rx Confirmed 08/20/25] cyclobenzaprine 5 mg tablet 5 mg PO QHS PRN muscle spasm #60 tabs 05/20/25 [Rx Confirmed 08/20/25] Exam Exam Patient is in no acute distress and is cooperative with the examination today. Breathing is nonlabored. In no respiratory distress. Bilateral extremities were evaluated and demonstrates sensation intact to light touch. Palpable pedal pulses are present. No significant edema is present. Bilateral hips were examined. The patient has no pain with log roll of the hips. Internal rotation to 30 degrees and external rotation to 30 degrees is painless. Negative FADIR. Right knee incisions clean dry intact. Range of motion 0 to 105 degrees Assessment and Plan Problem List (1) History of total right knee replacement: Status: Acute Plan: Patient is status post right total knee replacement. She is doing well with the right knee . Recommend knee cortisone injection as patient would like to proceed with conservative treatment at this time. The risks and benefits of the procedure were reviewed with the patient and patient gave verbal consent to continue with the procedure. Procedure: performed by Dr. Kirk Using sterile technique the left knee was thoroughly prepped with alcohol, and approximately 1 cc of Depo-Medrol 80mg/mL and 4 cc of 0.2% ropivacaine was injected without resistance into the medial tibial femoral joint space. The patient tolerated the procedure. Advanced Care Planning Discussion Advance care planning discussed with:: patient Office Procedures GNS Level of Care Nursing/Assessment Patient Status: Established Patient Nursing Assessment/Reassesment: Medication Reconciliation, Update PMH in EMR and Vital Signs Coordination of Care: Complex Care and Chronic Disease 1-5, Education Complex Pt/Fam, Consent,records obtained, informed consent, Results/Orders obtained and Staff clarify orders Established Patient Charge Established Patient Point Assignment: 95 Established Patient Point Charge: EP Level 3 (80-115) Surgical Proc/IM SQ injection Minor Surgical Procedure: Yes (KNEE INJECTION ) Medication Given Medication Given Medication Given: Yes Documented Dose Given: 1 Route: Infiitration Medication Given Medication Given Medication Given: Yes Documented Dose Given: 4 Route: Infiitration Office Meds methylprednisolone acetate 80 mg/mL suspension for injection Performing Provider: Sabino Kirk MD Performing Location: [facility] Administered by: Sabino Kirk MD on 08/20/25 14:06 Dose Route Admin Location Dispensed Lot Number Expiration Date Pack age [facility] [employer] 80 mg intra-articular 1 mL [id number] [employer] ropivacaine (PF) 2 mg/mL (0.2 %) injection solution Performing Provider: Sabino Kirk MD Performing Location: [facility] Administered by: Sabino Kirk MD on 08/20/25 14:06 Dose Route Admin Location Dispensed Lot Number Expiration Date Pack age [facility] [employer] Support [employer] 20 mL Infiltration 20 mL [id number] COUNTS INCLUDE 234 BEDS AT THE [facility] Intake Visit Data Collection New Patient or Established: Established Patient (seen at [facility] within 3 years) Reason for Visit:: REQ KNEE INJECTION Seen by Clinical Staff ONLY (RN/MA): No Verbal consent obtained for Telemed visit?: No 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 PCP or OBGYN visit in last 3 months: Yes Hx Now: No Do You Feel Safe at Home: Yes Authorities Contacted: N/A Questionairres Past Medical History Past Medical History Have you ever been diagnosed with any of the following: Neurological Problems Seizures: No Cardiology Problems Hypercholesterolemia: Yes Congestive Heart Failure: No Respiratory Problems Chronic Obstructive Pulmonary Disease (COPD): No Bronchitis: Yes Smoking: No Smoking Cessation Counseling: No Smoking Exposure: No Tobacco Use: No Stomache/Intestinal Problems Hepatitis: No Obesity: Yes Genital/Urinary Problems Renal Disease: No Reproductive Problems Previous Pregnancies: Yes Musculoskeletal Problems Arthritis: Yes Head,Eye,Nose,Throat Problems Cataracts: Yes (BILATERAL) Endocrine Problems Diabetes Mellitus Type 1: No Diabetes Mellitus Type 2: No Blood Problems Anemia: Yes Other Problems Hospitalization: No Shingles: No Blood Transfusions: Yes Blood Transfusion Reaction: No Anesthesia Reactions: No Chicken Pox: Yes Measles: Yes Mumps: Yes Cancer: No Subjective Visit Visit for: follow up visit, knee and injections Immunization / Flu Flu Vaccine in the Last 12 Months: No Flu Vaccine Exclusion Criteria: No Exclusion Criteria History of Present Illness Chief complaint: REQ KNEE INJECTION Date of 1st surgery (if applicable): 02/12/25 Patient is a 75-year-old female status post right total knee replacement. She is doing well. She is significant pain in the left knee. We have treated her conservatively in the past. The patient had x-rays and an the pain continues to improve. She would like a cortisone injection of the left knee today Personal History Occupation: DISABLED Red flag PMH: BMI BMI Counceling provided: Yes Pain Pain level (0-10): 6 Pain duration: CONSTANT Pain location: anterior Pain quality: dull and aching Pain timing: night, increases with activity and stairs Associated signs & symptoms: none Ambulatory data Ambulatory device: cane Treatments Improvement with previous injections: Yes Improvement with PT: No Improvement with NSAIDS: no Review of Systems Review of Systems: All systems negative unless otherwise noted in HPI.
== END 2025-08-20 14:02 | disposition home or self-care (01) ==
LOC: HODSRG 13:40
PROVIDERS: PCP Family Medicine; Referring Provider Family Medicine; Supervising Provider Orthopaedic Surgery Adult Reconstructive Orthopaedic Surgery; Visit Provider Orthopaedic Surgery Adult Reconstructive Orthopaedic Surgery
DX: M25.562 Pain in left knee (principal); Z96.651 Presence of right artificial knee joint; E78.00 Pure hypercholesterolemia, unspecified; E66.9 Obesity, unspecified; Z71.3 Dietary counseling and surveillance; Z68.39 Body mass index [BMI] 39.0-39.9, adult
CPT/HCPCS: 20610; 99213; J1010; J2795; G0463

== ENCOUNTER → 2025-09-19 | Outpatient (CLI) | payer MEDICARE, SELFPAY ==
--- NOTE | 2025-09-19 14:00 | XR_ITS ---
Examination: CT abdomen with intravenous contrast CT pelvis with intravenous contrast 2-D coronal reconstructions 2-D sagittal reconstructions Date and time of exam: September 19, 2025, 1223 hours INDICATIONS: Right lower abdominal pain and swelling today. CTDI: vol (mGy) 14.3 DLP: (mGycm) 752 Technique: Multiple axial sections of the abdomen and pelvis have been obtained. 64 slice high-resolution scanner used. 3 mm axial sections have been obtained, post intravenous injection 60 cc Isovue 370 2-D sagittal, coronal reconstructions obtained. Low dose protocols were performed. One or more of the following dose reduction techniques were used; automated exposure control, adjustment of the mA and/or KV according to patient size, use of iterative reconstruction technique. Findings: No focal liver or splenic lesions Mild to moderate enlargement cardiac contour Gastric sutures Retrocardiac gastric hernia Absent gallbladder No common bile duct stones No pancreatic mass Aorta normal size Bilateral benign renal cysts, the largest lateral margin right kidney 21 mm No renal or ureteral calculi, no hydronephrosis Normal appendix Mild small bowel ileus Small fat-containing umbilical hernia Atrophic uterus Contracted urinary bladder No diverticulitis No adnexal mass Severe osteopenia, grade 1 anterolisthesis L3 on L4, advanced degenerative disc disease lower 3 lumbar levels Moderate narrowing hip joints IMPRESSION: Retrocardiac gastric hernia No common bile duct or common hepatic duct stones No renal or ureteral calculi, no hydronephrosis Normal appendix No bowel obstruction or diverticulitis Negative for ascites Mild small bowel ileus
== END | disposition home or self-care (01) ==
LOC: SCAT 12:34
PROVIDERS: PCP Family Medicine; Referring Provider Surgery; Visit Provider Surgery
DX: K46.9 Unspecified abdominal hernia without obstruction or gangrene (principal); K56.7 Ileus, unspecified
CPT/HCPCS: 74177; A4649; Q9967

== ENCOUNTER 2025-10-01 15:07 | Outpatient (AMB) | payer MEDICARE, SELFPAY ==
--- NOTE | 2025-10-01 15:12 | ORTHONT_ITS ---
Vital signs 10/01/25 15:13 Height 1.6 m Height Method Measured Weight 99.989 kg Weight Measurement Method Standing Scale BMI 39.0 BP 146/82 H Blood Pressure Source Automatic Cuff Blood Pressure Location Left Upper Arm Position Sitting Respiration 19 Pulse 88 Pulse Source Monitor Temp 97.5 F Temp Source Temporal Artery Scan Pulse Oximetry (%) 95 Oxygen Delivery Method Room Air Med/Allergies Allergies & Medications Allergies No Known Allergies Allergy (Verified 10/01/25 15:14) Medication Reconciliation ferrous sulfate 325 mg (65 mg iron) tablet (FeroSul) 325 mg PO .3 week 02/04/25 [History Confirmed 10/01/25] aspirin 81 mg tablet,delayed release 81 mg PO BID #60 tabs 02/12/25 [Rx Confirmed 10/01/25] doxycycline hyclate 100 mg tablet 100 mg PO BID #14 tabs 02/12/25 [Rx Confirmed 10/01/25] famotidine 10 mg tablet mg 02/12/25 [History Confirmed 10/01/25] sennosides 8.6 mg-docusate sodium 50 mg tablet (Senna-S) 1 tab-cap PO QDAY #30 tabs 02/12/25 [Rx Confirmed 10/01/25] oxycodone 5 mg tablet 5 mg PO Q6H PRN pain #28 tabs 02/13/25 [Rx Confirmed 10/01/25] oxycodone 5 mg tablet 5 mg PO Q6H PRN pain #28 tabs 02/13/25 [Rx Confirmed 10/01/25] acetaminophen 500 mg tablet (Acetaminophen Extra Strength) 1,000 mg (2 x 500 mg) PO Q6H PRN pain #90 tabs 03/04/25 [Rx Confirmed 10/01/25] gabapentin 300 mg capsule 300 mg PO .qhs #30 caps 04/08/25 [Rx Confirmed 10/01/25] oxycodone 5 mg tablet 5 mg PO Q6H PRN pain #28 tabs 04/08/25 [Rx Confirmed 10/01/25] meloxicam 7.5 mg tablet 7.5 mg PO QDAY #45 tabs 05/08/25 [Rx Confirmed 10/01/25] cyclobenzaprine 5 mg tablet 5 mg PO QHS PRN muscle spasm #60 tabs 05/20/25 [Rx Confirmed 10/01/25] ibuprofen 800 mg tablet 800 mg PO BID #50 tabs 09/09/25 [Rx Confirmed 10/01/25] Exam Exam Patient is in no acute distress and is cooperative with the examination today. Breathing is nonlabored. In no respiratory distress. Bilateral extremities were evaluated and demonstrates sensation intact to light touch. Palpable pedal pulses are present. No significant edema is present. Bilateral hips were examined. The patient has no pain with log roll of the hips. Internal rotation to 30 degrees and external rotation to 30 degrees is painless. Negative FADIR. Right knee incisions clean dry intact. Range of motion 0 to 105 degrees Assessment and Plan Problem List (1) History of total right knee replacement: Status: Acute Plan: Patient is status post right total knee replacement. She is doing well with the right knee . She is doing well from her right total knee replacement Advanced Care Planning Discussion Advance care planning discussed with:: patient Office Procedures GNS Level of Care Nursing/Assessment Patient Status: Established Patient Nursing Assessment/Reassesment: Medication Reconciliation, Update PMH in EMR and Vital Signs Coordination of Care: Complex Care and Chronic Disease 1-5, Education Complex Pt/Fam, Consent,records obtained, informed consent, Results/Orders obtained and Staff clarify orders Established Patient Charge Established Patient Point Assignment: 95 Established Patient Point Charge: EP Level 3 (80-115) MA Intake Visit Data Collection New Patient or Established: Established Patient (seen at [facility] within 3 years) Reason for Visit:: XRAY F/U Seen by Clinical Staff ONLY (RN/MA): No Verbal consent obtained for Telemed visit?: 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 PCP or OBGYN visit in last 3 months: Yes Hx Now: No Do You Feel Safe at Home: Yes Authorities Contacted: N/A Questionairres Past Medical History Past Medical History Have you ever been diagnosed with any of the following: Neurological Problems Seizures: No Cardiology Problems Hypercholesterolemia: Yes Congestive Heart Failure: No Respiratory Problems Chronic Obstructive Pulmonary Disease (COPD): No Bronchitis: Yes Smoking: No Smoking Cessation Counseling: No Smoking Exposure: No Tobacco Use: No Stomache/Intestinal Problems Hepatitis: No Obesity: Yes Genital/Urinary Problems Renal Disease: No Reproductive Problems Previous Pregnancies: Yes Musculoskeletal Problems Arthritis: Yes Head,Eye,Nose,Throat Problems Cataracts: Yes (BILATERAL) Endocrine Problems Diabetes Mellitus Type 1: No Diabetes Mellitus Type 2: No Blood Problems Anemia: Yes Other Problems Hospitalization: No Shingles: No Blood Transfusions: Yes Blood Transfusion Reaction: No Anesthesia Reactions: No Chicken Pox: Yes Measles: Yes Mumps: Yes Cancer: No Subjective Visit Visit for: follow up visit and knee Immunization / Flu Flu Vaccine in the Last 12 Months: No Flu Vaccine Exclusion Criteria: No Exclusion Criteria History of Present Illness Chief complaint: XRAY F/U Date of 1st surgery (if applicable): 02/12/25 Patient is a 75-year-old female status post right total knee replacement. She is doing well. She is significant pain in the left knee. We have treated her conservatively in the past. Personal History Occupation: DISABLED Red flag PMH: BMI BMI Counceling provided: Yes Pain Pain level (0-10): 5 Pain duration: CONSTANT Pain location: anterior Pain quality: dull and aching Pain timing: night, increases with activity and stairs Associated signs & symptoms: none Ambulatory data Ambulatory device: cane Treatments Improvement with previous injections: Yes Improvement with PT: No Improvement with NSAIDS: no Review of Systems Review of Systems: All systems negative unless otherwise noted in HPI.
[2025-10-01 15:13] VITALS: BP 146/82; PULSE 88; RESP 19; TEMP 36.4; O2SAT 95; BMI 39.0
== END 2025-10-01 15:37 | disposition home or self-care (01) ==
LOC: HODSRG 15:07
PROVIDERS: PCP Family Medicine; Referring Provider Family Medicine; Supervising Provider Orthopaedic Surgery Adult Reconstructive Orthopaedic Surgery; Visit Provider Orthopaedic Surgery Adult Reconstructive Orthopaedic Surgery
DX: M25.562 Pain in left knee (principal); Z96.651 Presence of right artificial knee joint
CPT/HCPCS: 99213; G0463